=== PATIENT | male | born 1970 | race Caucasian/White ===

== ENCOUNTER 2021-03-08 18:15 | Emergency (ER) | payer SELFPAY ==
[~2021-03-08] VITALS: Ht 167.6 cm; Wt 109.1 kg
[2021-03-08] MEDS ORDERED: IBUP-2071 PO (18:28)
[2021-03-08] MEDS ORDERED: LEVO150 PO (18:28)
[2021-03-08] MEDS ORDERED: HYDROmorphone 2 MG/ML VIAL IM ONE (20:15)
[2021-03-08] MEDS ORDERED: ONDANSETRON HCL 4 MG/2 ML VIAL IM ONE (20:15)
[2021-03-08 20:51] VITALS: BP 138/87
== END 2021-03-08 21:44 | disposition home or self-care (01) ==
LOC: EMS 18:18
DX: S81.811A Laceration without foreign body, right lower leg, initial encounter (principal); X58.XXXA Exposure to other specified factors, initial encounter; Y93.89 Activity, other specified; Y92.89 Other specified places as the place of occurrence of the external cause; Y99.8 Other external cause status
CPT/HCPCS: 73590; 73630; 76881; 96372; 99285; J1170; J2405